=== PATIENT | female | born 1975 | race American Indian/Alaskan Native ===

== ENCOUNTER 2020-05-22 12:58 | Emergency (ER) | payer MEDICAID ==
[2020-05-22 14:13] LABS: Basophils % (Auto) 0.6 % (0.0-1.8); Eosinophils % (Auto) 0.3 % (0.0-4.3); Hemoglobin 10.8 gm/dl (10.1-14.3); Lymphocytes # (Auto) 2.3 K/mm3 (1.2-5.4); Lymphocytes % (Auto) 31.9 % (13.4-35.0); Mean Corpuscular HGB Conc 34 % (30-34); Mean Corpuscular Volume 92 fl (79-97); Monocytes # (Auto) 0.7 K/mm3 (0.0-0.8); Monocytes % (Auto) 9.2 % (0.0-7.3); Platelet Count 341 K/mm3 (140-440); Red Blood Count 3.49 M/mm3 (3.65-5.03); Red Cell Distribution Width 16.9 % (13.2-15.2)
[2020-05-22 14:28] LABS: Blood Urea Nitrogen 6 mg/dL (7-17); Calcium 8.8 mg/dL (8.4-10.2); Hemolysis Index 3
[2020-05-22 14:49] LABS: BUN/Creatinine Ratio 10
[2020-05-22] MEDS ORDERED: PANTOPRAZOLE 40 MG INJ IV ONE ×2 (16:06→18:12)
[2020-05-22] MEDS ORDERED: SODIUM CHLORIDE 0.9% 1000 ML 1,000 ML IV ONE (16:06)
[2020-05-22] MEDS ORDERED: ONDANSETRON 4 MG/2 ML INJ IV ONE (16:06)
[2020-05-22 16:15] LABS: INR 0.98 (0.87-1.13); Partial Thromboplastin Time 24.7 Sec. (24.2-36.6)
--- NOTE | 2020-05-22 17:02 | Emergency Department Report ---
HPI - General Chief Complaint: Nausea/Vomiting/Diarrhea Time Seen by Provider: 05/22/20 15:05 - HPI HPI: This is a 44-year-old female presents to the emergency department with complaint of nausea, vomiting, hematemesis and upper abdominal pain that is been going on since about 4 AM. Patient says that she has vomited a total of about 5 times and each time there has been blood and bile that came out. She has not taken anything for symptoms prior to presentation. She denies any fever, back pain, dysuria, vaginal bleeding or discharge. She has a history of previous thyroidectomy. No recent travel or sick contacts at home. ED Past Medical Hx - Past Medical History Previous Medical History?: No - Surgical History Past Surgical History?: Yes Additional Surgical History: thyroidectomy - Social History Smoking Status: Never Smoker Substance Use Type: None - Medications Home Medications: Home Medications Medication Instructions Recorded Confirmed Last Taken Type ALBUTEROL Inhaler(NF) [VENTOLIN 1 puff IH QID 30 Days inha 12/11/18 Unknown Rx Inhaler(NF)] HYDROcodone/HOMATROP 5-1.5 10 ml PO Q6H PRN 10 Days udc 12/11/18 Unknown Rx [HYDROcodone-Homatropin 5-1.5 mg per 5 ML] Prednisone [predniSONE 10 mg 10 mg PO .TAPER #1 tab.ds.pk 12/11/18 Unknown Rx (6-Day Pack, 21 Tabs)] levoFLOXacin [Levaquin TAB] 500 mg PO QDAY #5 tablet 12/11/18 Unknown Rx Omeprazole 20 mg PO QDAY #20 capsule. 05/22/20 Unknown Rx Ondansetron [Zofran Odt] 4 mg PO Q8HR PRN #12 tab.rapdis 05/22/20 Unknown Rx ED Review of Systems ROS: Stated complaint: VOMITTING BLOOD Other details as noted in HPI Comment: All other systems reviewed and negative Constitutional: denies: chills, fever Eyes: denies: eye pain, vision change ENT: denies: ear pain, throat pain Respiratory: denies: cough, shortness of breath Cardiovascular: denies: chest pain, palpitations Gastrointestinal: abdominal pain, nausea, vomiting, hematemesis Genitourinary: denies: dysuria, discharge Musculoskeletal: denies: back pain, arthralgia Skin: denies: rash, lesions Neurological: denies: headache, weakness Physical Exam - Physical Exam Vital Signs: Vital Signs 05/22/20 14:58 Temperature 98.0 F Pulse Rate 76 Respiratory 16 Rate Blood Pressure 114/76 [Right] O2 Sat by Pulse 99 Oximetry Physical Exam: GENERAL: The patient is well-developed well-nourished. HENT: Normocephalic. Atraumatic. Patient has moist mucous membranes. EYES: Extraocular motions are intact. NECK: Supple. Trachea is midline. CHEST/LUNGS: Clear to auscultation. There is no respiratory distress noted. HEART/CARDIOVASCULAR: Regular. There is no tachycardia. There is no murmur. ABDOMEN: Abdomen is soft. There is some upper abdominal tenderness to palpation. No guarding. Patient has normal bowel sounds. There is no abdominal distention. SKIN: Skin is warm and dry. NEURO: The patient is awake, alert, and oriented. The patient is cooperative. Normal speech. MUSCULOSKELETAL: There is no tenderness or deformity. ED Course Vital Signs 05/22/20 14:58 Temperature 98.0 F Pulse Rate 76 Respiratory 16 Rate Blood Pressure 114/76 [Right] O2 Sat by Pulse 99 Oximetry ED Medical Decision Making - Lab Data Result diagrams: 05/22/20 13:22 05/22/20 13:22 - Radiology Data Radiology results: report reviewed, image reviewed interpreted by me: Abdominal x-ray shows nonspecific nonobstructive bowel gas LIMITED RUQ ABDOMINAL ULTRASOUND INDICATION: upper abd pain. COMPARISON: No relevant prior imaging study available. FINDINGS: Pancreas: Visualized portions show no significant abnormality. Abdominal Aorta: No significant abnormality. IVC: No significant abnormality. Liver: No significant abnormality. Normal hepatopedal blood flow in the main portal vein. Gallbladder: No significant abnormality. Bile ducts: No significant abnormality. Common bile duct measures 4 mm. Right kidney: No significant abnormality visualized.. Free fluid: None. Additional Findings: None. IMPRESSION: 1. Normal exam. - Medical Decision Making Patient presents to the emergency department with complaint of nausea and vomiting and hematemesis. Since arrival to the emergency department and throughout her ED course there is been no further nausea, vomiting. There is some mild upper abdominal tenderness to palpation but otherwise the abdomen is soft, nondistended and nontoxic in appearance. Abdominal ultrasound does not show any acute process. Abdominal x-ray shows nonspecific nonobstructive bowel gas. The patient's labs have been unremarkable including CBC, metabolic panel but she does appear to have some mild hypothyroidism. Vital signs have been stable throughout her ED course. The patient was able to pass an oral challenge. She was given some IV fluid resuscitation, IV antiemetics and IV Protonix. She appears safe for discharge home at this time. She has been given outpatient referral for gastroenterology and will be placed on Zofran and omeprazole. She will return to the ER with any worsening of her symptoms or wi th any acute distress. Critical Care Time: No Critical care attestation.: If time is entered above; I have spent that time in minutes in the direct care of this critically ill patient, excluding procedure time. ED Disposition Clinical Impression: Nausea & vomiting Qualifiers: Vomiting type: unspecified Vomiting Intractability: non-intractable Qualified Code(s): R11.2 - Nausea with vomiting, unspecified Hematemesis Qualifiers: Nausea presence: without nausea Qualified Code(s): K92.0 - Hematemesis Hypothyroid Qualifiers: Hypothyroidism type: unspecified Qualified Code(s): E03.9 - Hypothyroidism, unspecified Abdominal pain Qualifiers: Abdominal location: upper abdomen, unspecified Qualified Code(s): R10.10 - Upper abdominal pain, unspecified Disposition: - TO HOME OR SELFCARE Is pt being admited?: No Condition: Stable Instructions: Gastrointestinal Bleeding (ED), Hypothyroidism (ED), Acute Nausea and Vomiting (ED), Abdominal Pain (ED) Additional Instructions: Please follow-up with a primary care physician in the next few days. I am also giving you a referral for a local cook fast food, Dr. Pettit, part of [facility], to follow-up regarding the upper GI bleed, or vomiting of blood. Return to the emergency department with any worsening of your symptoms or with any acute distress. Prescriptions: Omeprazole 20 mg PO QDAY #20 capsule. Ondansetron [Zofran Odt] 4 mg PO Q8HR PRN #12 tab.rapdis PRN Reason: Nausea Referrals: PRIMARY CARE, [Primary Care Provider] - 3-5 Days DWIGHT PETTIT MD [Staff Physician] - 3-5 Days Time of Disposition: 19:21
--- NOTE | 2020-05-22 17:28 | Ultrasound Report ---
LIMITED RUQ ABDOMINAL ULTRASOUND INDICATION: upper abd pain. COMPARISON: No relevant prior imaging study available. FINDINGS: Pancreas: Visualized portions show no significant abnormality. Abdominal Aorta: No significant abnormality. IVC: No significant abnormality. Liver: No significant abnormality. Normal hepatopedal blood flow in the main portal vein. Gallbladder: No significant abnormality. Bile ducts: No significant abnormality. Common bile duct measures 4 mm. Right kidney: No significant abnormality visualized.. Free fluid: None. Additional Findings: None. IMPRESSION: 1. Normal exam. Signer Name: Ranjan Adkins MD Signed: 05/22/2020 5:23 PM Workstation Name: [id number]
[2020-05-22] MEDS ORDERED: ONDANSETRON 4 MG/2 ML INJ ONE (18:12)
--- NOTE | 2020-05-22 18:42 | XRay Report ---
ABDOMEN 2 VIEW(S) INDICATION / CLINICAL INFORMATION: Abd pain. COMPARISON: None available. FINDINGS: TUBES / LINES: None. BOWEL GAS PATTERN/EXTRALUMINAL GAS: No significant abnormality. No free air. ADDITIONAL FINDINGS: No significant additional findings. IMPRESSION: 1. No acute abnormality. Signer Name: Carlos Blanton MD Signed: 05/22/2020 6:38 PM Workstation Name: [id number]
[2020-05-22 20:27] VITALS: BP 108/66
== END 2020-05-22 20:25 | disposition home or self-care (01) ==
LOC: ED 12:58
DX: K92.0 Hematemesis (principal); E03.9 Hypothyroidism, unspecified; R10.10 Upper abdominal pain, unspecified; Z90.89 Acquired absence of other organs; Z79.2 Long term (current) use of antibiotics; Z79.899 Other long term (current) drug therapy
CPT/HCPCS: 36415; 74019; 76705; 80048; 83690; 84439; 84443; 85025; 85610; 85730; 96361; 96374; 96375; 99284; C9113; J2405; J7030